=== PATIENT | male | born 1985 | race Two or more races ===

== ENCOUNTER 2024-01-16 16:14 | Emergency (ER) | payer MEDICAID, SELFPAY ==
--- NOTE | 2024-01-16 16:18 | EKG_ITS ---
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
[2024-01-16 16:22] VITALS: BP 149/61; PULSE 90; RESP 18; TEMP 36.7; O2SAT 98
[2024-01-16 16:33] VITALS: BMI 24.5
[2024-01-16 16:34] VITALS: BP 122/76
--- NOTE | 2024-01-16 16:39 | PD.EDRME ---
Rapid Medical Screening Exam RME Arrival date/time: 01/16/24 16:14 38-year-old male presents emergency department complaints of chest pain, anxiety today Chief Complaint: Arrhythmia/Palpitations Time Seen by Provider: 01/16/24 16:17 Vital signs: Vital Signs Temperature 98.1 F 01/16/24 16:22 Pulse Rate 90 01/16/24 16:22 Respiratory Rate 18 01/16/24 16:22 Blood Pressure 149/61 H 01/16/24 16:22 Pulse Oximetry (%) 98 01/16/24 16:22 Oxygen Delivery Method Room Air 01/16/24 16:22
[2024-01-16 17:17] LABS: Basophils # (Auto) 0.1 Thou/mm3 (0.0-0.2); Basophils % (Auto) 1 % (0-2.5); Eosinophils # (Auto) 0.2 Thou/mm3 (0.0-0.5); Eosinophils % (Auto) 2 % (0-10); Hematocrit 41.2 % (41.0-53.0); Hemoglobin 13.7 g/dL (13.5-16.0); Immature Granulocytes % (Auto) 0 % (0-0); Immature Granulocytes Auto 0.01 Thou/mm3 (0.00-0.00); Lymphocytes # (Auto) 1.4 Thou/mm3 (1.0-4.8); Lymphocytes % (Auto) 23 % (10-50); Mean Corpuscular HGB Conc 33.3 g/dl (31.0-37.0); Mean Corpuscular Hemoglobin 27.1 pg (25.0-35.0); Mean Corpuscular Volume 81 fL (80-100); Monocytes # (Auto) 0.6 Thou/mm3 (0.0-0.8); Monocytes % (Auto) 9 % (0-12); Neutrophils # (Auto) 4.1 Thou/mm3 (1.8-7.7); Neutrophils % (Auto) 65 % (37-80); Nucleated Red Blood Cell % 0 /100 WBC (0); Platelet Count 259 Thou/mm3 (140-440); RDW Standard Deviation 37.3 fL (35.1-43.9); Red Blood Count 5.06 Miln/mm3 (4.50-5.90); White Blood Count 6.2 Thou/mm3 (3.8-10.6)
[2024-01-16 17:35] LABS: Alanine Aminotransferase 42 U/L (10-49); Albumin, Serum 5.3 gm/dL (3.5-5.0); Albumin/Globulin Ratio 2.1 (1.2-2.2); Alkaline Phosphatase 62 U/L (46-116); Anion Gap 8 (7-16); Aspartate Amino Transferase 26 U/L (0-34); BUN/Creatinine Ratio 9 Ratio (12-20); Bilirubin,Total 0.5 mg/dL (0.3-1.2); Blood Urea Nitrogen 8 mg/dL (9-23); Calcium 9.8 mg/dL (8.3-10.6); Calcium (Corrected) 9.8 mg/dL (8.5-10.1); Carbon Dioxide 27.8 mMol/L (20.0-31.0); Chloride 101 mMol/L (98-107); Creatinine (Component) 0.9 mg/dL (0.6-1.3); Estimated Creatinine Clearance 106.6 mL/min (>60); Globulin 2.5 gm/dL (2.3-3.5); Glucose 151 mg/dL (74-106); Osmolality,Calculated 275 (275-295); Potassium 3.8 mMol/L (3.4-5.1); Sodium 137 mMol/L (136-145); Total Protein 7.8 gm/dL (5.7-8.2); Troponin I < 0.002 ng/mL (0.0-0.045); eGFR > 60 See Note
--- NOTE | 2024-01-16 17:57 | PD.EDANX ---
ED Anxiety RME/HPI General Chief Complaint: Arrhythmia/Palpitations Stated Complaint: PALPITATION/ANXIETY Time Seen by Provider: 01/16/24 16:17 Arrival date/time: 01/16/24 16:14 RME / HPI RME / HPI narrative: 38-year-old male patient with significant history of anxiety in the past, came in for evaluation regarding feeling of doom. Patient was driving on the way home, suddenly developed hyperventilation, numbness all over, palpitation, severity moderate. Patient denies any chest pain. Denies any other complaints patient is taking Lexapro with good compliance. Related Data Previous Rx's ?Medication ?Instructions ?Recorded Hydrocodone/Acetaminophen * (NORCO 1 tab PO HSPRN PRN PAIN #14 tabs 04/23/15 5/325 *) albuterol sulfate 90 mcg/actuation 1 - 2 puff inhalation Q6HR PRN 03/11/16 aerosol inhaler (ProAir HFA) WHEEZING #1 inh ibuprofen 600 mg tablet 600 mg PO Q6HR PRN PAIN #30 tabs 03/11/16 hydroxyzine HCl 50 mg tablet 50 mg PO TID PRN anxiety #30 tabs 01/16/24 Allergies Allergy/AdvReac Type Severity Reaction Status Date / Time NKA* Allergy Uncoded 01/16/24 16:15 Review of Systems Review of Systems Narrative Review of Systems: Review of system reviewed and within normal limits except mentioned in HPI ED Exam Narrative Physical exam: VITAL SIGNS: Reviewed. GENERAL APPEARANCE: Alert and interactive, follows commands, no acute distress, HEAD AND FACE: Non-traumatic. ENT: PERRL, pink conjunctivitis, eyelid no trauma, Mucous membrane moist. NECK: Supple, nontender, no nuchal rigidity. CHEST: No tenderness, no crepitus, no paradoxical movement, no retractions. LUNGS: Clear, well ventilated, symmetric, no rales, no wheezing, no ronchi, no stridor, good breath sounds bilaterally. HEART: Regular rate, regular rhythm, no murmur, no gallops. ABDOMEN: Soft, positive bowel sounds, nondistended, no guarding, nontender, no rebound, no masses, RECTAL: Deferred. GENITAL: Deferred. NEUROLOGICAL: Gross motor function intact sensory function intact, Appropriate for age. MUSCULOSKELETAL: low back nontender, full range of motion. EXTREMITIES: Nontender, full range of motion. SKIN: Color pink, dry, no rash, no lacerations, no abrasions, no contusions. LYMPHATICS: Deferred. Course Quality Measures none Orders Category Date Time Status EKG (ED ONLY) *Do not use* NOW Care 01/16/24 16:18 Completed EKG (ED Only) Stat Exams 01/16/24 16:18 Draft CBC Stat Lab 01/16/24 16:58 Completed CMP [Comprehensive Metabolic Panel] Stat Lab 01/16/24 16:58 Completed Drug Screen,Urine Stat Lab 01/16/24 16:39 Ordered Troponin I Stat Lab 01/16/24 16:58 Completed Vital Signs Vital signs: Vital Signs Temperature 98.1 F 01/16/24 16:22 Pulse Rate 90 01/16/24 16:22 Respiratory Rate 18 01/16/24 16:22 Blood Pressure 149/61 H 01/16/24 16:22 Pulse Oximetry (%) 98 01/16/24 16:22 Oxygen Delivery Method Room Air 01/16/24 16:22 Anxiety MDM Narrative MDM Narrative: 38-year-old male patient with significant history of anxiety in the past, came in for evaluation regarding feeling of doom. Patient was driving on the way home, suddenly developed hyperventilation, numbness all over, palpitation, severity moderate. Patient denies any chest pain. Denies any other complaints patient is taking Lexapro with good compliance. Dehydration laboratory workup all came back unremarkable. EKG also came back normal. Patient told me that his symptoms is totally gone after few minutes after he arrived in the ER. Patient data External records reviewed:: None Clinical information provided by:: none Social determinants that could affect healthcare access:: none Patient has the following chronic illnesses:: Although pt's initial presentation was concerning, Pt now reports feeling better after Ativan and has an unremarkable vital signs. Stable for D/C. Hydroxyzine given as needed How is presenting disease/condition affected by chronic disease/condition?: uneffected by Evaluation data The following diagnostics were reviewed and interpreted by me:: lab results, radiology exam(s) and EKG tracing(s) Lab and/or radiology exams considered but not ordered:: None Interpretation Summary: EKG as interpreted by me showed normal sinus rhythm, ventricular rate of 74 bpm, no ST segment elevation or depression. Laboratory workup came back normal Medications / Prescriptions Medications or Prescriptions considered but not ordered:: None Medication administrations:: None Consultations Consultation(s) initiated? (list below): No Diagnosis Differential diagnosis anxiety: hyperventilation, panic disorder and acute anxiety Most likely diagnosis given after review of the tests above:: anxiety Admission Indicated Admission indicated?: not indicated Admission Request Was there a request for admission?: No Disposition Plan Disposition Plan: Discharge Discharge Attestation Discharge Attestation: The patient was given an opportunity to ask questions and understood the discharge instructions. Discharge instructions specifically effects, indications for sooner follow up or return to the emergency department, and the expected course of current diagnosis. Patient condition: Stable Discharge Plan Plan Patient Disposition: HOME (Self Care) Disposition Comment: stable Prescriptions/Referrals Prescriptions/Med Rec: New hydroxyzine HCl 50 mg tablet 50 mg PO TID PRN (Reason: anxiety) Qty: 30 0RF No Action Hydrocodone/Acetaminophen * (NORCO 5/325 *) 1 TAB tablet 1 tab PO HSPRN PRN (Reason: PAIN) Qty: 14 0RF Rx Instructions: FOR PAIN ibuprofen 600 MG tablet 600 mg PO Q6HR PRN (Reason: PAIN) Qty: 30 0RF albuterol sulfate [ProAir HFA] 8.5 GM HFA aerosol inhaler 1 - 2 puff Inhalation Q6HR PRN (Reason: WHEEZING) Qty: 1 0RF Rx Instructions: Please give and use spacer Referrals: Yane Biggs, [employer]PERVISOR [Primary Care Provider] - In 1 week Problem List Clinical Impression: Anxiety Patient/Caregiver Discharge Instructions Discharge Activity: activity as tolerated Education Materials: Treating Anxiety Disorders ... Additional Instructions: Thank you for the opportunity for serving you today. You are stable for discharged . You are advised to: Follow-up with your PCP in 1 to 2 days Return to ED for worsening of symptoms Increase oral fluids Take medication as prescribed as needed Print Language: Uzbek Stand Alone Forms: Tami Award Info., Work/School Release, Patient Portal Info Letter NORM/KISHA Supervising Physician NORM/KISHA Supervising Physician: MD Prabhjot
[2024-01-16 17:59] VITALS: PULSE 90
[2024-01-16 18:03] VITALS: BP 120/70; PULSE 90; RESP 16; TEMP 36.6; O2SAT 99
== END 2024-01-16 18:04 | disposition home or self-care (01) ==
PROVIDERS: Nurse Practitioner Primary Care; Emergency Provider Emergency Medicine; PCP Nurse Practitioner Family
DX: F41.9 Anxiety disorder, unspecified (principal)
CPT/HCPCS: 36415; 80053; 80307; 84484; 85025; 93005; 99283

== ENCOUNTER 2024-01-18 21:32 | Emergency (ER) | payer MEDICAID, SELFPAY ==
[2024-01-18 21:34] VITALS: BMI 24.5
[2024-01-18 21:44] VITALS: BP 142/85; PULSE 100; RESP 20; TEMP 36.8; O2SAT 100
--- NOTE | 2024-01-18 22:00 | PD.EDWOUND ---
ED Wound/Laceration-RME/HPI General Chief Complaint: Burn/Smoke Inhalation Stated Complaint: BURN TO LEFT TOP FOOT WITH HOT WATER Time Seen by Provider: 01/18/24 21:57 Source: patient Arrival date/time: 01/18/24 21:32 38-year-old male presents emergency department complaining of hot water burn to left foot that occurred earlier today. Patient denies any other associated symptoms. Mode of arrival: ambulatory Limitations: no limitations Related Data Previous Rx's ?Medication ?Instructions ?Recorded Hydrocodone/Acetaminophen * (NORCO 1 tab PO HSPRN PRN PAIN #14 tabs 04/23/15 5/325 *) albuterol sulfate 90 mcg/actuation 1 - 2 puff inhalation Q6HR PRN 03/11/16 aerosol inhaler (ProAir HFA) WHEEZING #1 inh ibuprofen 600 mg tablet 600 mg PO Q6HR PRN PAIN #30 tabs 03/11/16 hydroxyzine HCl 50 mg tablet 50 mg PO TID PRN anxiety #30 tabs 01/16/24 ibuprofen 600 mg tablet 600 mg PO Q8H PRN pain #20 tabs 01/18/24 silver sulfadiazine 1 % topical 1 applic topical QDAY #20 grams 01/18/24 cream Allergies Allergy/AdvReac Type Severity Reaction Status Date / Time NKA* Allergy Uncoded 01/16/24 16:15 Review of Systems Review of Systems Systems Reviewed: All systems reviewed, normal except as documented Constitutional Constitutional: Reports system reviewed and no additional complaints, except as documented, Denies body ache(s), Denies chills and Denies fever(s) Eyes Eyes: Reports system reviewed and no additional complaints, except as documented and Denies change in vision ENT Ears, Nose, Mouth, and Throat: Reports system reviewed and no additional complaints, except as documented, Denies disequilibrium, Denies dizziness, Denies sore throat and Denies vertigo Cardiovascular Cardiovascular: Reports system reviewed and no additional complaints, except as documented, Denies chest pain and Denies dyspnea Respiratory Respiratory: Reports system reviewed and no additional complaints, except as documented, Denies chest congestion, Denies cough and Denies dyspnea Gastrointestinal Gastrointestinal: Reports system reviewed and no additional complaints, except as documented, Denies abdominal pain, Denies nausea and Denies vomiting Musculoskeletal Musculoskeletal: Reports system reviewed and no additional complaints, except as documented, Denies abnormal gait and Denies arthralgias Integumentary/Breasts Skin/Breast: Reports system reviewed and no additional complaints, except as documented, Denies erythema, Denies rash and Reports wounds Neurologic Neurologic: Reports system reviewed and no additional complaints, except as documented, Denies abnormal gait, Denies disequilibrium, Denies dizziness and Denies vertigo Past Medical History Past Medical History CARDIAC: Negative Congestive Heart Failure RESPIRATORY: Negative Chronic Obstructive Pulmonary Disease (COPD) GENITOURINARY: Negative Renal Disease ENDOCRINE: Negative Diabetes Mellitus Type 1 or Diabetes Mellitus Type 2 Social History SMOKING STATUS: Never smoker SUBSTANCE USE: does not use ED Exam General Limitations: Present no limitations General appearance: Present alert and in no apparent distress Head Head exam: Present atraumatic Eye Eye exam: Present normal appearance, PERRL and EOMI ENT ENT exam: Present normal exam, normal oropharynx and mucous membranes moist Neck Neck exam: Present normal inspection, full ROM and trachea midline Chest Chest inspection: Present normal inspection and symmetric chest wall rise Respiratory Respiratory exam: Present normal lung sounds bilaterally Cardiovascular Cardiovascular exam: Present regular rate, normal rhythm and normal heart sounds Abdominal Exam Abdominal exam: Present soft and normal bowel sounds Extremities Exam Extremities exam: Present normal inspection and full ROM Expanded Lower Extremity Exam Top foot image: 1. Second-degree burn with blisters that are popped. Burn is not circumferential. Neurovascular/Tendon exam: Present normal capillary refill Gait: observed and normal Back Exam Back exam: Present normal inspection and full ROM Neurological Exam Neurological exam: Present alert, oriented X3 and CN II-XII intact Psychiatric Psychiatric exam: Present normal affect and normal mood Skin Skin exam: Present warm, dry, intact and normal color Course Quality Measures none Orders Category Date Time Status HYDROcodone*/APAP 5/325 [[place] 5/325] Med 01/18/24 22:02 Discontinued 1 tab PO X1 ONE Silver Sulfadiazine Cr 1% 25Gm [Silvadene Cr] Med 01/18/24 22:01 Discontinued See Dose Instructions TOP X1 ONE Vital Signs Vital signs: Vital Signs Temperature 98.2 F 01/18/24 21:44 Pulse Rate 100 01/18/24 21:44 Respiratory Rate 20 01/18/24 21:44 Blood Pressure 142/85 H 01/18/24 21:44 Pulse Oximetry (%) 100 01/18/24 21:44 Oxygen Delivery Method Room Air 01/18/24 21:44 100% room air within normal limits Wound / Laceration MDM Narrative MDM Narrative:: 38 year-old male presents emergency department complaining of hot water burn to left foot that occurred earlier today. Patient denies any other associated symptoms. Patient reports was boiling eggs when water accidentally fell on left foot patient reports was wearing sock and immediately took it off. Second-degree burn to top of left foot with pop blisters. Burn is not circumferential. Patient's left lower extremity is neurovascularly intact. Dressing applied with silver sulfadiazine. Patient reports is up-to-date with tetanus vaccine. Patient instructed to apply silver sulfadiazine as prescribed and have follow-up appointment with primary care provider 24 to 48 hours and return to emergency department for any worsening symptoms or as needed. Patient data External records reviewed:: [facility] previous records Clinical information provided by:: patient Social determinants that could affect healthcare access:: none Patient has the following chronic illnesses:: See chart How is presenting disease/condition affected by chronic disease/condition?: uneffected by Evaluation data The following diagnostics were reviewed and interpreted by me:: other (specify) (N/A) Lab and/or radiology exams considered but not ordered:: N/A Interpretation Summary: N/A Medications / Prescriptions Medications or Prescriptions considered but not ordered:: Ordered Medication administrations:: Medication Administration History Discontinued Medications Hydrocodone Bitart/Acetaminophen (Hydrocodone/Apap 5/325 Tablet) 1 tab PO X1 ONE Stop: 01/18/24 22:03 Last Admin: 01/18/24 22:05 Dose: Not Given Documented By: OA Non-Admin Reason: Patient Refused Silver Sulfadiazine (Silver Sulfadiazine Cr 1% 25 Gm Tube) 0 gm TOP X1 ONE Stop: 01/18/24 22:02 Last Admin: 01/18/24 22:07 Dose: 1 tub Documented By: OA Given Consultations Consultation(s) initiated? (list below): No Diagnosis Wound Differential Diagnosis: other (Cellulitis) Most likely diagnosis given after review of the tests above:: Burn second-degree of left foot initial encounter Admission Indicated Admission indicated?: not indicated Admission Request Was there a request for admission?: No Disposition Plan Disposition Plan: Discharge Discharge Attestation Discharge Attestation: The patient and all family members were given an opportunity to ask questions and understood the discharge instructions. Discharge instructions specifically effects, indications for sooner follow up or return to the emergency department, and the expected course of current diagnosis. Patient condition: Stable Discharge Plan Plan Patient Disposition: HOME (Self Care) Disposition Comment: Stable Prescriptions/Referrals Prescriptions/Med Rec: New silver sulfadiazine 1 % cream 1 applic topical QDAY Qty: 20 0RF Rx Instructions: apply a 1.5 mm thickness ibuprofen 600 mg tablet 600 mg PO Q8H PRN (Reason: pain) Qty: 20 0RF No Action Hydrocodone/Acetaminophen * (NORCO 5/325 *) 1 TAB tablet 1 tab PO HSPRN PRN (Reason: PAIN) Qty: 14 0RF Rx Instructions: FOR PAIN ibuprofen 600 MG tablet 600 mg PO Q6HR PRN (Reason: PAIN) Qty: 30 0RF albuterol sulfate [ProAir HFA] 8.5 GM HFA aerosol inhaler 1 - 2 puff Inhalation Q6HR PRN (Reason: WHEEZING) Qty: 1 0RF Rx Instructions: Please give and use spacer hydroxyzine HCl 50 mg tablet 50 mg PO TID PRN (Reason: anxiety) Qty: 30 0RF Problem List Clinical Impression: Burn of second degree of left foot, initial encounter Patient/Caregiver Discharge Instructions Education Materials: ED Burn, Hot Water, ED Burn, Second-Degree Additional Instructions: Apply medication as prescribed. Close follow-up with primary care provider in 24 to 48 hours. Return to emergency department for any worsening symptoms or as needed. Print Language: Kazakh Stand Alone Forms: Tami Award Info., Patient Portal Info Letter PA/KISHA Supervising Physician NORM/KISHA Supervising Physician: Dr. Tilley
[2024-01-18] MEDS: SILVER SULFADIAZINE CR 1% 25 GM TUBE TOP (22:07)
== END 2024-01-18 22:39 | disposition home or self-care (01) ==
PROVIDERS: Emergency Provider Emergency Medicine; PCP Nurse Practitioner Family
DX: T25.222A Burn of second degree of left foot, initial encounter (principal); T31.0 Burns involving less than 10% of body surface; X11.8XXA Contact with other hot tap-water, initial encounter
CPT/HCPCS: 99283; A9270